=== PATIENT | male | born 1965 | race Caucasian/White ===

== ENCOUNTER → 2016-04-15 | Outpatient (CLI) | payer BC ==
[2016-04-15 11:35] LABS: AST/SGOT 16 U/L (15-37); BLOOD UREA NITROGEN 15 mg/dl (7-18); BUN/CREATININE RATIO 12.7 (10-20); CALCIUM 8.9 mg/dl (8.5-10.1); CARBON DIOXIDE 28 mmol/L (21-32); CHLORIDE 105 mmol/L (98-107); GLUCOSE 93 mg/dl (70-99); POTASSIUM 4.4 mmol/L (3.5-5.1); SODIUM 141 mmol/L (136-145)
[2016-04-15 11:37] LABS: ALB/GLOB RATIO 1.2 (0.9-2); ALKALINE PHOSPHATASE 48 U/L (45-117); ALT/SGPT 30 U/L (12-78); CHOLESTEROL 217 mg/dl (0-200); CHOLESTEROL/HDL RATIO 3.1; HDL CHOLESTEROL 70 mg/dl; LDL CHOLESTEROL CALCULATED 124 mg/dl; TRIGLYCERIDES 113 mg/dl (0-150); VERY LOW DENSITY LIPOPROT CALC 23 mg/dl
== END | disposition home or self-care (01) ==
LOC: C.LABBC 08:41
PROVIDERS: ATTEND Nurse Practitioner Family
DX: K21.9 Gastro-esophageal reflux disease without esophagitis (principal); E78.5 Hyperlipidemia, unspecified

== ENCOUNTER → 2016-07-31 | Outpatient (CLI) | payer BC ==
[~2016-07-31] VITALS: Ht 185.4 cm; Wt 88.7 kg
[2016-07-31 12:56] VITALS: BP 144/84; PULSE 87; Ht 185.4 cm; Wt 88.7 kg
== END | disposition home or self-care (01) ==
LOC: C.NEUR 12:22
PROVIDERS: ATTEND Physician Assistant
DX: G47.33 Obstructive sleep apnea (adult) (pediatric) (principal)

== ENCOUNTER 2016-09-14 20:22 | Emergency (ER) | payer BC ==
[~2016-09-14] VITALS: Ht 185.4 cm; Wt 88.6 kg
[2016-09-14 20:32] VITALS: TEMP 37; Ht 185.4 cm; Wt 88.6 kg
[2016-09-14] MEDS ORDERED: SODIUM CHLORIDE 0.9% 1000ML 1,000 ML IV STA (20:43)
[2016-09-14] MEDS ORDERED: ONDANSETRON INJ 2 MG/ML 2 ML VIAL IV STA (20:43)
[2016-09-14] MEDS ORDERED: MoRPHine SULFATE 4 MG/ML 1 ML CARP\\VIAL IV PRN (20:45)
[2016-09-14 21:08] LABS: BASO % 0.1 %; BASO ABS # 0.01 K/uL (0-0.2); COMPLETE YES; EOS % 2.6 %; HEMATOCRIT 47.6 % (42-52); IG% 0.1 %; LYMPH % 34.1 %; LYMPH ABS # 2.51 K/uL (1.2-3.4); MEAN CELL VOLUME 92.4 fL (80-100); MEAN CORPUSCULAR HEMOGLOBIN 31.5 pg (25-34); MEAN PLATELET VOLUME 9.7 fL (7.4-10.4); MONO % 8.7 %; NEUT % 54.4 %; PLATELET COUNT 212 K/uL (130-400); RED BLOOD COUNT 5.15 M/uL (4.7-6.1); WHITE BLOOD COUNT 7.36 K/uL (4.8-10.8)
--- NOTE | 2016-09-14 21:11 | EMERGENCY ROOM VISIT NOTE ---
History Report prepared by Luz Maria: Danii Reynaga Under the Supervision of: Dr. Dre Santos D.O. First contact with patient: 20:42 Chief Complaint: ABDOMINAL PAIN Stated Complaint: PAIN IN LOWER RIGHT ABDOMIN History of Present Illness The patient is a 50 year old male who presents to the Emergency Room with complaints of constant RLQ abdominal pain beginning 3 hours ago. The patient states that his abdominal pain came on suddenly 3 hours ago and is worsened with standing. He reports that he has had a kidney stone before and these symptoms do not feel similar. The patient denies any testicular pain, back pain , nausea, vomiting, urinary symptoms, chest pain, fever, shortness of breath, back pain, and rectal bleeding. Source of History: patient Onset: 3 hours ago Position: abdomen (RLQ) Timing: constant Modifying Factors (Worsening): other (standing) Associated Symptoms: No fevers, No chest pain, No SOB, No nausea, No vomiting, No back pain, No urinary symptoms Note: The patient denies any testicular pain and rectal bleeding. Review of Systems See HPI for pertinent positives & negatives. A total of 10 systems reviewed and were otherwise negative. Past Medical & Surgical Medical Problems: (1) High cholesterol (2) Kidney stone Family History No pertinent family history stated. Social History Smoking Status: Former Smoker Smokeless Tobacco Use: No Alcohol Use: occasionally Drug Use: none Marital Status: Housing Status: lives with significant other Occupation Status: employed Current/Historical Medications No Active Prescriptions or Reported Meds Allergies Coded Allergies: No Known Allergies (Unverified , 09/14/16) Physical Exam Vital Signs Date Time Temp Pulse Resp B/P (MAP) Pulse Ox O2 Delivery O2 Flow Rate FiO2 09/14/16 22:37 70 18 126/85 98 Room Air 09/14/16 20:32 37.0 79 16 145/85 98 Room Air Physical Exam GENERAL: Patient is awake, alert, and in no acute distress. Patient is resting comfortably and showing no signs of anxiety EYES: The conjunctivae are clear. The pupils are round and reactive. EARS, NOSE, MOUTH AND THROAT: The nose is without any evidence of any deformity. Mucous membranes are moist tongue is midline NECK: The neck is nontender and supple. RESPIRATORY: Normal respiratory effort is noted there is no evidence of wheezing rhonchi or rales CARDIOVASCULAR: Regular rate and rhythm noted there no murmurs rubs or gallops normal S1 normal S2 GASTROINTESTINAL: The abdomen is mildly distended but soft. Bowel sounds are present in all quadrants. Abdomen is tender in the RLQ to palpation, no guarding or rigidity BACK: No midline tenderness or or step-off noted range of motion in flexion extension as well as rotation no signs of muscle spasm noted MUSCULOSKELETAL/EXTREMITIES: There is no evidence of gross deformity full range of motion is noted in the hips and shoulders SKIN: There is no obvious evidence of any rash. There are no petechiae, pallor or cyanosis noted. NEUROLOGIC: Patient is awake alert and oriented x3 strength is symmetric patellar reflexes are 2+ bilaterally Medical Decision & Procedures ER Provider Diagnostic Interpretation: Radiology results as stated below per my review and radiologist interpretation: CT SCAN OF THE ABDOMEN AND PELVIS WITHOUT CONTRAST FINDINGS: Lower chest: There are minimal dependent atelectatic changes Liver: The unenhanced liver is normal in size, contour, and attenuation. There is no intrahepatic biliary ductal dilatation. Gallbladder: Unremarkable. Spleen: Normal in size and attenuation. Pancreas: Unremarkable. Adrenal glands: Unremarkable. Kidneys: No renal calculi are visualized. There is a tiny calcification in close proximity to the mid right ureter. This likely represents a phlebolith given the lack of secondary hydronephrosis and ureteral dilatation. No bladder calculi are evident. Bowel: There are no transition zones indicate bowel obstruction. There are scattered colonic diverticula present. There is no acute diverticulitis. The appendix appears normal. Peritoneum: There is no intraperitoneal free air or abdominal ascites. There is a small fat-containing left inguinal hernia Vasculature: The abdominal aorta is normal in course and caliber. Adenopathy: None. Pelvic viscera: The bladder, and pelvic viscera are unremarkable. Skeletal structures: No destructive osseous lesions are seen. IMPRESSION: 1. No evidence of bowel obstruction. No evidence of free air 2. No definite renal, ureteral, or bladder calculi identified. There is a tiny right-sided calcification in close proximity to the mid right ureter. This is likely extra ureteral given the lack of ureteral dilatation 3. Normal appendix 4. No evidence of acute diverticulitis 5. Small fat-containing left inguinal hernia Electronically signed by: Hay Freedman M.D. 09/14/2016 9:37 PM Dictated Date/Time: 09/14/2016 9:33 PM Laboratory Results 09/14/16 20:45 Red Blood Count 5.15, Mean Corpuscular Volume 92.4, Mean Corpuscular Hemoglobin 31.5, Mean Corpuscular Hemoglobin Concent 34.0, Mean Platelet Volume 9.7, Neutrophils (%) (Auto) 54.4, Lymphocytes (%) (Auto) 34.1, Monocytes (%) (Auto) 8.7, Eosinophils (%) (Auto) 2.6, Basophils (%) (Auto) 0.1, Neutrophils # (Auto) 4.00, Lymphocytes # (Auto) 2.51, Monocytes # (Auto) 0.64, Eosinophils # (Auto) 0.19, Basophils # (Auto) 0.01 09/14/16 20:45 Test 09/14/16 00:00 09/14/16 20:45 Urine Color YELLOW Urine Appearance CLEAR (CLEAR) Urine pH 5.0 (4.5-7.5) Urine Specific [place] 1.025 (1.000-1.030) Urine Protein NEG (NEG) Urine Glucose (UA) NEG (NEG) Urine Ketones TRACE (NEG) Urine Occult Blood 2+ (NEG) Urine Nitrite NEG (NEG) Urine Bilirubin NEG (NEG) Urine Urobilinogen NEG (NEG) Urine Leukocyte Esterase SMALL (NEG) Urine WBC (Auto) 5-10 /hpf (0-5) Urine RBC (Auto) 5-10 /hpf (0-4) Urine Hyaline Casts (Auto) 1-5 /lpf (0-5) Urine Epithelial Cells (Auto) 5-10 /lpf (0-5) Urine Bacteria (Auto) NEG (NEG) White Blood Count 7.36 K/uL (4.8-10.8) Red Blood Count 5.15 M/uL (4.7-6.1) Hemoglobin 16.2 g/dL (14.0-18.0) Hematocrit 47.6 % (42-52) Mean Corpuscular Volume 92.4 fL (80-100) Mean Corpuscular Hemoglobin 31.5 pg (25-34) Mean Corpuscular Hemoglobin Concent 34.0 g/dl (32-36) Platelet Count 212 K/uL (130-400) Mean Platelet Volume 9.7 fL (7.4-10.4) Neutrophils (%) (Auto) 54.4 % Lymphocytes (%) (Auto) 34.1 % Monocytes (%) (Auto) 8.7 % Eosinophils (%) (Auto) 2.6 % Basophils (%) (Auto) 0.1 % Neutrophils # (Auto) 4.00 K/uL (1.4-6.5) Lymphocytes # (Auto) 2.51 K/uL (1.2-3.4) Monocytes # (Auto) 0.64 K/uL (0.11-0.59) Eosinophils # (Auto) 0.19 K/uL (0-0.5) Basophils # (Auto) 0.01 K/uL (0-0.2) RDW Standard Deviation 44.6 fL (36.4-46.3) RDW Coefficient of Variation 13.2 % (11.5-14.5) Immature Granulocyte % (Auto) 0.1 % Immature Granulocyte # (Auto) 0.01 K/uL (0.00-0.02) Anion Gap 7.0 mmol/L (3-11) Est Creatinine Clear Calc Drug Dose 85.1 ml/min Estimated GFR () 82.4 Estimated GFR (Non- 71.1 BUN/Creatinine Ratio 10.4 (10-20) Calcium Level 9.3 mg/dl (8.5-10.1) Total Bilirubin 0.5 mg/dl (0.2-1) Direct Bilirubin mg/dl (0-0.2) Aspartate Amino Transf (AST/SGOT) U/L (15-37) Alanine Aminotransferase (ALT/SGPT) 33 U/L (12-78) Alkaline Phosphatase 66 U/L (45-117) Total Protein 8.1 gm/dl (6.4-8.2) Albumin 4.0 gm/dl (3.4-5.0) Lipase 246 U/L (73-393) Laboratory results per my review. Medications Administered Medications (Trade) Dose Ordered Sig/Yonas Route Start Time Stop Time Status Last Admin Dose Admin Sodium Chloride 1,000 ml @ 999 mls/hr Q1H1M STAT IV 09/14/16 20:43 09/14/16 21:43 DC 09/14/16 21:00 999 MLS/HR Morphine Sulfate (MoRPHine SULFATE INJ) 4 mg Q15M PRN IV 09/14/16 20:45 09/15/16 00:18 DC 09/14/16 21:00 4 MG Ondansetron HCl (Zofran Inj) 4 mg NOW STAT IV 09/14/16 20:43 09/14/16 20:45 DC 09/14/16 21:00 4 MG Oxycodone HCl (Roxicodone Immediate Rel 5MG Home Pack) 1 homepack UD ONCE PO 09/14/16 23:00 09/14/16 23:01 DC 09/14/16 23:52 1 HOMEPACK Ondansetron HCl (ZOFRAN ODT 4MG Home Pack) 1 homepack UD ONCE PO 09/14/16 23:00 09/14/16 23:01 DC 09/14/16 23:52 1 HOMEPACK ED Course 2041: The patient was evaluated in room C1. A complete history and physical examination were performed. 2042: Zofran Inj 4mg IV, NSS 1,000 ml @ 999 mls/hr IV. 2044: Morphine Sulfate 4mg PRN IV pain. 2251: I reevaluated and updated the patient. 2299: Ondansetron HCl 1 homepack PO, Oxycodone HCl 1 homepack PO. 2304: Upon reevaluation, the patient is doing well. I discussed the results and treatment plan with the patient. He verbalized agreement of the treatment plan. The patient was discharged home. Medical Decision Differential diagnosis: Etiologies such as appendicitis, diverticulitis, PUD, biliary pathology, UTI, pancreatitis, obstruction, mesenteric ischemia, aortic pathology, infections, inflammatory bowel disease, renal colic, as well as others were entertained. Medication Reconciliation: I attest that I have personally reviewed the patient' s current medications list. Patient was found to have a slightly elevated blood pressure due to pain. I do not believe that the patient requires hypertension monitoring. The patient is a 50-year-old male who presented to the emergency department for an evaluation of right sided abdominal pain. The patient has a history of kidney stones and the pain was very acute in nature. The patient had right lower quadrant abdominal pain and felt there could be something different going on. CT the abdomen and pelvis did not show a definite ureteral calculus but also did not show signs of appendicitis. The patient had some amount of hematuria so I do feel his presentation is consistent with renal colic. I discussed the patient's laboratory and radiographic studies with him. He was treated with IV fluids IV pain medicine and IV antiemetics. On subsequent reevaluation he was feeling much better. He was encouraged to call his family doctor in the morning to schedule a follow-up appointment and return to the emergency department if symptoms change worsen or the need arises. Impression Primary Impression: RLQ abdominal pain Additional Impression: Hematuria Scribe Attestation The scribe's documentation has been prepared under my direction and personally reviewed by me in its entirety. I confirm that the note above accurately reflects all work, treatment, procedures, and medical decision making performed by me. Departure Information Dispostion Home / Self-Care Prescriptions No Active Prescriptions or Reported Meds Referrals Javier Jimenez III, CRNP (PCP) Forms Call Back Authorization, HOME CARE DOCUMENTATION FORM, IMPORTANT VISIT INFORMATION Patient Instructions Kidney Stones Eval, My [facility] Additional Instructions Call your family in the morning to schedule a follow-up appointment. Drink plenty clear liquids. Continue using Motrin and Tylenol for pain. Return to the emergency department if symptoms worsen or if need arises. Problem Qualifiers Additional Impression: Hematuria Hematuria type: unspecified type Qualified Codes: R31.9 - Hematuria, unspecified
[2016-09-14 21:12] LABS: URINE APPEARANCE CLEAR (CLEAR); URINE BILIRUBIN NEG (NEG); URINE COLOR YELLOW; URINE NITRITE NEG (NEG); URINE SPECIFIC GRAVITY 1.025 (1.000-1.030); UROBILINOGEN NEG (NEG)
[2016-09-14 21:15] LABS: MANUAL MICROSCOPIC REQUIRED? NO; REVIEW REQ? NO
[2016-09-14 21:34] LABS: ALKALINE PHOSPHATASE 66 U/L (45-117); ALT/SGPT 33 U/L (12-78); BLOOD UREA NITROGEN 13 mg/dl (7-18); BUN/CREATININE RATIO 10.4 (10-20); CALCIUM 9.3 mg/dl (8.5-10.1); CARBON DIOXIDE 29 mmol/L (21-32); CHLORIDE 103 mmol/L (98-107); GLUCOSE 98 mg/dl (70-99); SODIUM 139 mmol/L (136-145)
--- NOTE | 2016-09-14 21:39 | DIAGNOSTIC IMAGING REPORT ---
CT SCAN OF THE ABDOMEN AND PELVIS WITHOUT CONTRAST CLINICAL HISTORY: right flank pain COMPARISON STUDY: No previous studies for comparison. TECHNIQUE: CT scan of the abdomen and pelvis was performed from the lung bases to the proximal femurs. Images are reviewed in the axial, sagittal, and coronal planes. IV contrast was not administered for this examination. CT DOSE: 450.23 mGy.cm FINDINGS: Lower chest: There are minimal dependent atelectatic changes Liver: The unenhanced liver is normal in size, contour, and attenuation. There is no intrahepatic biliary ductal dilatation. Gallbladder: Unremarkable. Spleen: Normal in size and attenuation. Pancreas: Unremarkable. Adrenal glands: Unremarkable. Kidneys: No renal calculi are visualized. There is a tiny calcification in close proximity to the mid right ureter. This likely represents a phlebolith given the lack of secondary hydronephrosis and ureteral dilatation. No bladder calculi are evident. Bowel: There are no transition zones indicate bowel obstruction. There are scattered colonic diverticula present. There is no acute diverticulitis. The appendix appears normal. Peritoneum: There is no intraperitoneal free air or abdominal ascites. There is a small fat-containing left inguinal hernia Vasculature: The abdominal aorta is normal in course and caliber. Adenopathy: None. Pelvic viscera: The bladder, and pelvic viscera are unremarkable. Skeletal structures: No destructive osseous lesions are seen. IMPRESSION: 1. No evidence of bowel obstruction. No evidence of free air 2. No definite renal, ureteral, or bladder calculi identified. There is a tiny right-sided calcification in close proximity to the mid right ureter. This is likely extra ureteral given the lack of ureteral dilatation 3. Normal appendix 4. No evidence of acute diverticulitis 5. Small fat-containing left inguinal hernia Electronically signed by: Hay Freedman M.D. 09/14/2016 9:37 PM Dictated Date/Time: 09/14/2016 9:33 PM
[2016-09-14 22:37] VITALS: BP 126/85; PULSE 70; O2SAT 98
[2016-09-14] MEDS ORDERED: ONDANSETRON HOME PACK 4MG OD TAB PO ONE (23:00)
[2016-09-14] MEDS ORDERED: OXYCODONE IR HOME PACK PO ONE (23:00)
== END 2016-09-14 23:53 | disposition home or self-care (01) ==
LOC: C.EDB 20:23 → C.EDC 23:53
DX: R10.31 Right lower quadrant pain (principal); R31.9 Hematuria, unspecified; Z87.442 Personal history of urinary calculi; E78.00 Pure hypercholesterolemia, unspecified; Z87.891 Personal history of nicotine dependence

== ENCOUNTER → 2016-10-20 | Outpatient (CLI) | payer BC ==
[2016-10-20 11:04] LABS: BLOOD UREA NITROGEN 12 mg/dl (7-18); CALCIUM 8.7 mg/dl (8.5-10.1); CARBON DIOXIDE 28 mmol/L (21-32); CHLORIDE 105 mmol/L (98-107); CHOLESTEROL 197 mg/dl (0-200); GLUCOSE 95 mg/dl (70-99); SODIUM 138 mmol/L (136-145); TRIGLYCERIDES 103 mg/dl (0-150); VERY LOW DENSITY LIPOPROT CALC 21 mg/dl
[2016-10-20 11:08] LABS: CHOLESTEROL/HDL RATIO 2.6; HDL CHOLESTEROL 75 mg/dl; LDL CHOLESTEROL CALCULATED 101 mg/dl
== END | disposition home or self-care (01) ==
LOC: C.LABBC 08:08
PROVIDERS: ATTEND Nurse Practitioner Family
DX: K21.9 Gastro-esophageal reflux disease without esophagitis (principal); E78.5 Hyperlipidemia, unspecified

== ENCOUNTER → 2017-03-25 | Outpatient (CLI) | payer BC ==
[2017-03-25 14:13] LABS: ALBUMIN 3.9 gm/dl (3.4-5.0); ALT/SGPT 46 U/L (12-78); AST/SGOT 29 U/L (15-37); BLOOD UREA NITROGEN 11 mg/dl (7-18); CARBON DIOXIDE 29 mmol/L (21-32); CREATININE 1.04 mg/dl (0.60-1.40); GLUCOSE 86 mg/dl (70-99); POTASSIUM 4.3 mmol/L (3.5-5.1); SODIUM 137 mmol/L (136-145); TOTAL PROTEIN 7.5 gm/dl (6.4-8.2); URIC ACID 5.1 mg/dl (2.6-7.2)
[2017-03-25 14:19] LABS: BASO % 0.4 %; BASO ABS # 0.02 K/uL (0-0.2); EOS % 2.2 %; EOS ABS # 0.11 K/uL (0-0.5); HEMATOCRIT 46.6 % (42-52); HEMOGLOBIN 16.1 g/dL (14.0-18.0); IG# 0.02 K/uL (0.00-0.02); LYMPH % 40.7 %; LYMPH ABS # 2.07 K/uL (1.2-3.4); MEAN CELL VOLUME 93.8 fL (80-100); MEAN CORPUSCULAR HEMOGLOBIN 32.4 pg (25-34); MEAN CORPUSCULAR HGB CONC 34.5 g/dl (32-36); MEAN PLATELET VOLUME 10.6 fL (7.4-10.4); MONO % 8.1 %; MONO ABS # 0.41 K/uL (0.11-0.59); NEUT % 48.2 %; NEUT ABS # 2.45 K/uL (1.4-6.5); PLATELET COUNT 217 K/uL (130-400); RED CELL DISTRIBUTION WIDTH SD 44.9 fL (36.4-46.3); WHITE BLOOD COUNT 5.08 K/uL (4.8-10.8)
[2017-03-25 14:26] LABS: ALKALINE PHOSPHATASE 60 U/L (45-117)
== END | disposition home or self-care (01) ==
LOC: C.RADBC 09:48
PROVIDERS: ATTEND Nurse Practitioner Family
DX: M25.561 Pain in right knee (principal); M25.571 Pain in right ankle and joints of right foot

== ENCOUNTER → 2017-03-26 | Outpatient (CLI) | payer BC ==
--- NOTE | 2017-03-26 09:31 | DIAGNOSTIC IMAGING REPORT ---
R KNEE 1 OR 2 VIEWS ROUTINE CLINICAL HISTORY: RIGHT ANKLE PAIN pain COMPARISON: None. DISCUSSION: Mild degenerative change all major joint compartments. No significant joint effusion. No fracture or dislocation. Small osteophyte projecting from the superior margin patella. There is no evidence for soft tissue swelling. IMPRESSION: Mild degenerative change. No acute process. The above report was generated using voice recognition software. It may contain grammatical, syntax or spelling errors. Electronically signed by: Nam Martinez M.D. 03/26/2017 9:30 AM Dictated Date/Time: 03/26/2017 9:29 AM
--- NOTE | 2017-03-26 09:33 | DIAGNOSTIC IMAGING REPORT ---
R ANKLE MIN 3 VIEWS ROUTINE CLINICAL HISTORY: RIGHT ANKLE PAIN pain COMPARISON: None. DISCUSSION: The bones and joint spaces appear intact. There is no evidence of fracture, dislocation or bony disease. There is no evidence for soft tissue swelling. IMPRESSION: Negative study. The above report was generated using voice recognition software. It may contain grammatical, syntax or spelling errors. Electronically signed by: Nam Martinez M.D. 03/26/2017 9:32 AM Dictated Date/Time: 03/26/2017 9:30 AM
== END | disposition home or self-care (01) ==
LOC: C.RADBC 08:43
PROVIDERS: ATTEND Nurse Practitioner Family
DX: M25.571 Pain in right ankle and joints of right foot (principal); M25.561 Pain in right knee

== ENCOUNTER → 2017-04-15 | Outpatient (CLI) | payer BC | END | disposition home or self-care (01) | LOC: C.LABBC 09:01 | PROVIDERS: ATTEND Nurse Practitioner Family | DX: R07.9 Chest pain, unspecified (principal); I10 Essential (primary) hypertension ==